=== PATIENT | male | born 1940 | race Caucasian/White ===

== ENCOUNTER 2021-04-17 11:14 | Inpatient (IN) ==
[2021-04-17 12:15] LABS: Basophils # 0.1 10*3/uL (0.0-0.2); Basophils % 0.7 % (0.0-0.8); Eosinophils # 0.1 10*3/uL (0.0-0.87); Eosinophils % 1.1 % (0.00-10.9); Immature Granulocytes % 1.5 %; Immature Granulocytes Absolute 0.12 #; Lymphocytes % 11.9 % (21.2-54.2); Mean Corpuscular HGB Conc 32.4 GM/DL (32-36); Mean Corpuscular Volume 92.6 FL (87-102); Mean Platelet Volume 8.9 FL (9.6-12.0); Monocytes % 7.1 % (1.7-12.7); Neutrophils % 77.7 % (38.7-73.9); Platelet Count 347 T/CUMM (130-400); Red Blood Count 3.67 MC/CUMM (3.8-5.5); Red Cell Distribution Width 14.2 % (9.3-17.3); White Blood Count 8.2 T/CUMM (4-12)
[2021-04-17 12:31] LABS: Alanine Aminotransferase 14 U/L (16-61); Albumin 3.9 G/DL (3.4-5.0); Alkaline Phosphatase 68 U/L (45-117); Aspartate Amino Transferase 8 U/L (0-37); Bilirubin,Total < 0.39 MG/DL (0.20-1.00); Blood Urea Nitrogen 25 MG/DL (7-18); Carbon Dioxide 26 MMOL/L (21-32); Estimated Glom Filtration Rate 38 ML/MIN; Glucose 171 MG/DL (74-106); Osmolality,Calculated 277.1 MOS/KG (273-304); Potassium 5.1 MMOL/L (3.5-5.1); Sodium 135 MMOL/L (136-145); Total Protein 7.3 G/DL (6.4-8.2)
[2021-04-17 12:48] LABS: Thyroid Stimulating Hormone 1.48 uIU/ml (0.358-3.74)
[2021-04-17 13:39] LABS: Bilirubin,Urine Negative (Negative); Blood, Urine Negative (Negative); Glucose,Urine (UA) >=500 mg/dL (Negative); Ketones,Urine 5 mg/dL (Negative); Mucus,Urine Occasional /LPF (Occasional); Nitrite,Urine Negative (Negative); Protein,Urine Negative; Squamous Epithelial Cell,Urine Occasional /HPF (0-10); Urine Appearance CLEAR (Clear); Urine Color Yellow (Yellow); Urine Urobilinogen < 2.0 EU/DL (0.2-1.0)
[2021-04-17] MEDS ORDERED: guaiFENesin/DM ER 600-30 MG TABLET PO PRN (14:28)
[2021-04-17] MEDS ORDERED: hydrALAZINE 20 MG/1 ML VIAL IV PRN (14:28)
[2021-04-17] MEDS ORDERED: ALBUTEROL/IPRATROPIUM 3 ML NEB RESP TX PRN (14:28)
[2021-04-17] MEDS ORDERED: ACETAMINOPHEN 325 MG TABLET PO PRN (14:28)
[2021-04-17] MEDS ORDERED: ONDANSETRON 4 MG/2 ML VIAL IV PRN (14:28)
[2021-04-17] MEDS ORDERED: GLUCAGON 1 MG VIAL IM PRN (14:28)
[2021-04-17] MEDS ORDERED: DEXTROSE 50% 25 GM/50 ML VIAL IV PRN (14:28)
[2021-04-17] MEDS ORDERED: DOCUSATE SODIUM 100 MG CAPSULE PO PRN (14:28)
[2021-04-17] MEDS ORDERED: HEPARIN 5,000 UNIT/1 ML VIAL SUBCUT SCH (14:30)
[2021-04-17] MEDS: SODIUM CHLORIDE 0.9% 1,000 ML IV SCH (15:04)
[2021-04-17 16:49] LABS: Basophils # 0.1 10*3/uL (0.0-0.2); Basophils % 0.9 % (0.0-0.8); Eosinophils % 0.4 % (0.00-10.9); Hematocrit 33.2 VOL% (42.0-52.0); Hemoglobin 10.7 GM/DL (14.0-18.0); Immature Granulocytes % 1.6 %; Immature Granulocytes Absolute 0.15 #; Lymphocytes # 0.8 10*3/uL (1.4-4.0); Lymphocytes % 8.8 % (21.2-54.2); Mean Corpuscular HGB Conc 32.2 GM/DL (32-36); Mean Platelet Volume 8.7 FL (9.6-12.0); Monocytes % 6.5 % (1.7-12.7); Neutrophils % 81.8 % (38.7-73.9); Platelet Count 339 T/CUMM (130-400); Red Blood Count 3.57 MC/CUMM (3.8-5.5); Red Cell Distribution Width 14.2 % (9.3-17.3); White Blood Count 9.3 T/CUMM (4-12)
[2021-04-17 17:12] LABS: Ferritin 13.6 ng/mL (26-388)
[2021-04-17 17:14] LABS: Folate 10.34 NG/ML (5.38-24.0); Vitamin B12 790 PG/ML (211-911)
[2021-04-17] MEDS: [UNRECOGNIZED DRUG - OTHER] RIGHT EYE SCH ×2 (17:15→21:35)
[2021-04-17] MEDS: INSULIN REGULAR 100 UNIT/ML SUBCUT SCH ×2 (17:15→21:36)
[2021-04-17 17:51] LABS: Sedimentation Rate-Westergren 28 MM/HR (0-20)
[2021-04-17] MEDS: TAMSULOSIN 0.4 MG CAPSULE PO SCH (21:33)
[2021-04-17] MEDS: DOXAZOSIN 4 MG TABLET PO SCH (21:34)
[2021-04-17] MEDS: DILTIAZEM CD 240 MG CAPSULE PO SCH (21:34)
[2021-04-17] MEDS: lamoTRIgine 100 MG TABLET PO SCH (21:34)
[2021-04-18] MEDS: SODIUM CHLORIDE 0.9% 1,000 ML IV SCH (04:50)
[2021-04-18 05:49] LABS: Basophils # 0.1 10*3/uL (0.0-0.2); Basophils % 1.1 % (0.0-0.8); Eosinophils # 0.1 10*3/uL (0.0-0.87); Eosinophils % 2.6 % (0.00-10.9); Hematocrit 29.2 VOL% (42.0-52.0); Hemoglobin 9.5 GM/DL (14.0-18.0); Immature Granulocytes % 1.1 %; Immature Granulocytes Absolute 0.06 #; Lymphocytes # 0.8 10*3/uL (1.4-4.0); Lymphocytes % 13.9 % (21.2-54.2); Mean Corpuscular HGB Conc 32.5 GM/DL (32-36); Mean Platelet Volume 8.9 FL (9.6-12.0); Monocytes % 11.4 % (1.7-12.7); Neutrophils % 69.9 % (38.7-73.9); Platelet Count 308 T/CUMM (130-400); Red Blood Count 3.14 MC/CUMM (3.8-5.5); Red Cell Distribution Width 14.3 % (9.3-17.3); White Blood Count 5.5 T/CUMM (4-12)
[2021-04-18 06:19] LABS: Albumin 3.1 G/DL (3.4-5.0); Bilirubin,Total 1.6 MG/DL (0.20-1.00); Calcium 8.2 MG/DL (8.5-10.1); Osmolality,Calculated 280.5 MOS/KG (273-304); Potassium 4.2 MMOL/L (3.5-5.1); Risk Ratio 5.91; Total Protein 6.1 G/DL (6.4-8.2); VLDL Cholesterol 53.8 MG/DL
[2021-04-18] MEDS: INSULIN REGULAR 100 UNIT/ML SUBCUT SCH ×4 (07:39→21:21)
[2021-04-18] MEDS: DOXAZOSIN 4 MG TABLET PO SCH ×2 (09:32→21:21)
[2021-04-18] MEDS: DILTIAZEM CD 240 MG CAPSULE PO SCH ×2 (09:32→21:20)
[2021-04-18] MEDS: lamoTRIgine 100 MG TABLET PO SCH ×2 (09:32→21:21)
[2021-04-18] MEDS: CLOPIDOGREL 75 MG TABLET PO SCH (09:32)
[2021-04-18] MEDS: EZETIMIBE 10 MG TABLET PO SCH (09:33)
[2021-04-18] MEDS: SERTRALINE 25 MG TABLET PO SCH (09:33)
[2021-04-18] MEDS: DONEPEZIL 10 MG TABLET PO SCH (09:33)
[2021-04-18] MEDS: PANTOPRAZOLE 40 MG TABLET PO SCH (09:33)
[2021-04-18] MEDS: [UNRECOGNIZED DRUG - OTHER] RIGHT EYE SCH ×4 (09:34→21:24)
[2021-04-18] MEDS: IRON (CARBONYL) 45 MG TABLET PO SCH ×2 (13:22→21:26)
[2021-04-18] MEDS: TAMSULOSIN 0.4 MG CAPSULE PO SCH (21:20)
[2021-04-19 05:55] LABS: Calcium 8.6 MG/DL (8.5-10.1); Osmolality,Calculated 277.8 MOS/KG (273-304); Potassium 4.4 MMOL/L (3.5-5.1)
[2021-04-19] MEDS: INSULIN REGULAR 100 UNIT/ML SUBCUT SCH ×4 (08:01→22:21)
[2021-04-19] MEDS: EZETIMIBE 10 MG TABLET PO SCH (08:33)
[2021-04-19] MEDS: DILTIAZEM CD 240 MG CAPSULE PO SCH ×2 (08:33→22:18)
[2021-04-19] MEDS: CLOPIDOGREL 75 MG TABLET PO SCH (08:34)
[2021-04-19] MEDS: SERTRALINE 25 MG TABLET PO SCH (08:34)
[2021-04-19] MEDS: PANTOPRAZOLE 40 MG TABLET PO SCH (08:34)
[2021-04-19] MEDS: IRON (CARBONYL) 45 MG TABLET PO SCH ×2 (08:34→22:18)
[2021-04-19] MEDS: CYANOCOBALAMIN 500 MCG TABLET PO SCH (08:34)
[2021-04-19] MEDS: DOXAZOSIN 4 MG TABLET PO SCH ×2 (08:34→22:18)
[2021-04-19] MEDS: DONEPEZIL 10 MG TABLET PO SCH (08:34)
[2021-04-19] MEDS: lamoTRIgine 100 MG TABLET PO SCH ×2 (08:34→22:18)
[2021-04-19] MEDS: [UNRECOGNIZED DRUG - OTHER] RIGHT EYE SCH ×4 (08:37→22:19)
[2021-04-19] MEDS: TAMSULOSIN 0.4 MG CAPSULE PO SCH (22:18)
[2021-04-20] MEDS: PANTOPRAZOLE 40 MG TABLET PO SCH (08:59)
[2021-04-20] MEDS: INSULIN REGULAR 100 UNIT/ML SUBCUT SCH ×4 (08:59→22:26)
[2021-04-20] MEDS: SERTRALINE 25 MG TABLET PO SCH (08:59)
[2021-04-20] MEDS: DONEPEZIL 10 MG TABLET PO SCH (08:59)
[2021-04-20] MEDS: DILTIAZEM CD 240 MG CAPSULE PO SCH ×2 (08:59→22:27)
[2021-04-20] MEDS: CYANOCOBALAMIN 500 MCG TABLET PO SCH (08:59)
[2021-04-20] MEDS: EZETIMIBE 10 MG TABLET PO SCH (09:00)
[2021-04-20] MEDS: CLOPIDOGREL 75 MG TABLET PO SCH (09:00)
[2021-04-20] MEDS: IRON (CARBONYL) 45 MG TABLET PO SCH ×2 (09:00→22:27)
[2021-04-20] MEDS: lamoTRIgine 100 MG TABLET PO SCH ×2 (09:00→22:27)
[2021-04-20] MEDS: [UNRECOGNIZED DRUG - OTHER] RIGHT EYE SCH ×4 (09:01→22:27)
[2021-04-20] MEDS: DOXAZOSIN 4 MG TABLET PO SCH ×2 (09:03→22:27)
[2021-04-20] MEDS: TAMSULOSIN 0.4 MG CAPSULE PO SCH (22:27)
[2021-04-21 08:35] VITALS: BP 166/73
[2021-04-21] MEDS: INSULIN REGULAR 100 UNIT/ML SUBCUT SCH (08:45)
[2021-04-21] MEDS: EZETIMIBE 10 MG TABLET PO SCH (09:17)
[2021-04-21] MEDS: PANTOPRAZOLE 40 MG TABLET PO SCH (09:18)
[2021-04-21] MEDS: DILTIAZEM CD 240 MG CAPSULE PO SCH (09:18)
[2021-04-21] MEDS: IRON (CARBONYL) 45 MG TABLET PO SCH (09:18)
[2021-04-21] MEDS: lamoTRIgine 100 MG TABLET PO SCH (09:18)
[2021-04-21] MEDS: CYANOCOBALAMIN 500 MCG TABLET PO SCH (09:18)
[2021-04-21] MEDS: SERTRALINE 25 MG TABLET PO SCH (09:18)
[2021-04-21] MEDS: DOXAZOSIN 4 MG TABLET PO SCH (09:18)
[2021-04-21] MEDS: DONEPEZIL 10 MG TABLET PO SCH (09:18)
[2021-04-21] MEDS: [UNRECOGNIZED DRUG - OTHER] RIGHT EYE SCH (09:19)
== END 2021-04-21 11:41 | disposition home health service (06) | DRG 57 ==
LOC: N.EDINP 11:14 → N.ED 11:14 → SUATTDRO 14:28 → N.3E 15:42 → SUATTDRO 04-18 09:57
PROVIDERS: ADMIT Internal Medicine; ATTEND Internal Medicine